=== PATIENT | female | born 1975 | race Two or more races ===

== ENCOUNTER 2021-06-24 19:05 | Emergency (ER) | payer SELFPAY ==
[2021-06-24] MEDS ORDERED: Morphine 4 MG/ML VIAL ONE (22:12)
== END 2021-06-24 23:00 | disposition home or self-care (01) ==
LOC: ERS 19:05
DX: M54.50 Low back pain, unspecified (principal); E11.9 Type 2 diabetes mellitus without complications; Z79.899 Other long term (current) drug therapy
CPT/HCPCS: 72100; J2270